=== PATIENT | male | born 1975 | race Caucasian/White ===

== ENCOUNTER 2023-11-10 01:09 | Observation (INO) ==
[2023-11-10] MEDS: Lidocaine/Epineph/Tetraca GEL 3 ML GEL IN SYR TOPICAL ONE (03:09)
[2023-11-10 03:40] LABS: Urine Appearance Cloudy; Urine Bilirubin Negative (Negative); Urine Blood Negative (Negative); Urine Color Yellow; Urine Glucose Negative (Negative); Urine Ketones Negative (Negative); Urine Nitrite Negative (Negative); Urine Protein Negative (Negative); Urine Specific Gravity 1.024 (1.002-1.030); Urine Urobilinogen Negative (Negative)
[2023-11-10 03:40] LABS: Hematocrit 42.6 % (38-53); Hemoglobin 12.8 g/dL (13.2-16.3); Mean Corpuscular Hemoglobin 22.1 pg (27-33); Mean Corpuscular Volume 73.6 fL (80-97); Mean Platelet Volume 6.8 fL (7.5-11.2); Platelet Count 233 10^3/uL (150-450); Red Blood Count 5.79 10^6/uL (4.06-5.63); Red Cell Distribution Width 17.6 % (12-17); White Blood Count 14.3 10^3/uL (3.6-10.2)
[2023-11-10] MEDS: Lidocaine PATCH 5% PATCH TRANSDERM ONE (03:41)
[2023-11-10 03:53] LABS: ALT 101 U/L (7-52); AST 48 U/L (13-39); Albumin/Globulin Ratio 1.3 (1-3); Alkaline Phosphatase 108 U/L (35-149); Anion Gap 10 mmol/L (2-16); Blood Urea Nitrogen 38 mg/dL (6-24); CO2 Carbon Dioxide 23 mmol/L (22-32); Calcium 9.6 mg/dL (8.6-10.3); Chloride 104 mmol/L (101-111); Creatinine, Serum 0.84 mg/dL (0.67-1.17); Globulin 3.1 g/dL (2-4); Glucose 138 mg/dL (70-100); Potassium 3.8 mmol/L (3.5-5.0); Sodium 137 mmol/L (135-145); Total Bilirubin 0.8 mg/dL (0.2-1.0); Total Protein 7.1 g/dL (6.4-8.9); eGFR CKD-EPI 106.9 (>60)
[2023-11-10 04:01] LABS: Urine Benzodiazepine Screen Presumptive Positive (None Detect); Urine Cannabinoids Screen None Detected (None Detect); Urine Opiates Screen None Detected (None Detect)
[2023-11-10 04:14] LABS: Acetaminophen < 15 mcg/mL; Alcohol, S < 13 mg/dL (<13); Salicylate < 2.50 mg/dL (<30)
[2023-11-10 04:27] LABS: ABS Lymphocytes 0.5 10^3/uL (1.0-4.8); ABS Monocytes 0.4 10^3/uL (0.0-1.1); ABS Neutrophils 13.4 10^3/uL (1.5-7.6); ABS Nucleated RBC 0.02 10^3/ul; Anisocytosis 1+; Lymphocyte % 3.5 %; Microcytosis 2+; Nucleated Red Blood Cells % 0.1 %/100WBC (0.0-0.8); Polychromasia 1+
[2023-11-10 04:30] LABS: TSH Ultra Thyroid Stim Horm 0.48 mcIU/mL (0.34-5.60)
[2023-11-10] MEDS: Albuterol/Ipratropium NEB.SOL (2.5/0.5 MG) 3 ML NEB.SOLN INH SCH ×2 (05:20→05:59)
[2023-11-10] MEDS: Morphine ER 15 mg TAB ** extended release PO PRN (05:26)
[2023-11-10] MEDS: Enoxaparin 40 MG/0.4 ML SYR SUBCUT SCH (05:26)
[2023-11-10] MEDS: cefTRIAXone 1 gm/50 mL D5W 1 GM/50 ML BAG IV SCH (05:27)
[2023-11-10 06:16] LABS: Hematocrit 37.8 % (38-53); Hemoglobin 12.1 g/dL (13.2-16.3); Mean Corpuscular Hemoglobin 22.3 pg (27-33); Mean Corpuscular Hgb Conc 32.1 g/dL (31-36); Mean Corpuscular Volume 69.5 fL (80-97); Mean Platelet Volume 7.3 fL (7.5-11.2); Platelet Count 267 10^3/uL (150-450); Red Blood Count 5.44 10^6/uL (4.06-5.63); White Blood Count 14.8 10^3/uL (3.6-10.2)
[2023-11-10 07:29] LABS: ABS Lymphocytes 0.5 10^3/uL (1.0-4.8); ABS Monocytes 0.4 10^3/uL (0.0-1.1); ABS Neutrophils 13.8 10^3/uL (1.5-7.6); ABS Nucleated RBC 0.01 10^3/ul; Lymphocyte % 3.6 %; Nucleated Red Blood Cells % 0.1 %/100WBC (0.0-0.8)
[2023-11-10 11:49] LABS: Albumin 4.3 g/dL (3.2-5.2); Albumin/Globulin Ratio 1.3 (1-3); Calcium 9.6 mg/dL (8.6-10.3); Creatinine, Serum 0.89 mg/dL (0.67-1.17); Globulin 3.2 g/dL (2-4); Potassium 4.1 mmol/L (3.5-5.0); Total Bilirubin 0.7 mg/dL (0.2-1.0); Total Protein 7.5 g/dL (6.4-8.9); eGFR CKD-EPI 105.1 (>60)
[2023-11-10] MEDS: Nicotine GUM 4MG FRUIT FLAVOR PO PRN (12:55)
[2023-11-10 15:40] VITALS: BP 143/112
[2023-11-10] MEDS: Phenylephrine 1% NASAL 15 ML BOT BOTH NARES PRN (15:55)
[2023-11-10] MEDS ORDERED: Albuterol/Ipratropium NEB.SOL (2.5/0.5 MG) 3 ML NEB.SOLN INH PRN (18:42)
[2023-11-11] MEDS ORDERED: ceFAZolin 1 GM ADVAN 1 GM in NS 0.9% 50 ML 50 ML IVPB SCH (14:00)
== END 2023-11-10 17:00 | disposition left against medical advice (07) ==
LOC: ED 01:09 → EDHOLD 01:09 → SSU 07:26
PROVIDERS: ADMIT Internal Medicine; ATTEND Internal Medicine

== ENCOUNTER 2024-01-02 14:40 | Inpatient (IN) ==
[2024-01-02 15:56] LABS: ABS Basophils 0.1 10^3/uL (0.0-0.1); ABS Eosinophils 0.3 10^3/uL (0.0-0.5); ABS Lymphocytes 2.8 10^3/uL (1.0-4.8); ABS Monocytes 1.6 10^3/uL (0.0-1.1); ABS Neutrophils 8.6 10^3/uL (1.5-7.6); ABS Nucleated RBC 0.01 10^3/ul; Eosinophil % 2.1 %; Hematocrit 42.4 % (38-53); Hemoglobin 13.8 g/dL (13.2-16.3); Lymphocyte % 20.8 %; Mean Corpuscular Hemoglobin 21.4 pg (27-33); Mean Corpuscular Hgb Conc 32.5 g/dL (31-36); Mean Corpuscular Volume 65.8 fL (80-97); Mean Platelet Volume 7.5 fL (7.5-11.2); Nucleated Red Blood Cells % 0.1 %/100WBC (0.0-0.8); Platelet Count 440 10^3/uL (150-450); Red Blood Count 6.43 10^6/uL (4.06-5.63); Red Cell Distribution Width 14.9 % (12-17); White Blood Count 13.4 10^3/uL (3.6-10.2)
[2024-01-02] MEDS: oxyCODONE/Acetamin 5/325 mg TAB PO ONE (16:33)
[2024-01-02] MEDS: Ondansetron 4 mg VIAL 2 MG/ML 2 ml VIAL IV ONE (16:38)
[2024-01-02] MEDS: NS 0.9% 500 ml BAG 500 ML IV ONE (16:38)
[2024-01-02 16:46] LABS: Albumin 3.9 g/dL (3.2-5.2); Albumin/Globulin Ratio 1.1 (1-3); Calcium 9.7 mg/dL (8.6-10.3); Creatinine, Serum 1.66 mg/dL (0.67-1.17); Globulin 3.5 g/dL (2-4); Potassium 2.7 mmol/L (3.5-5.0); Total Protein 7.4 g/dL (6.4-8.9); eGFR CKD-EPI 50.2 (>60)
[2024-01-02 17:05] LABS: High Sensitivity Troponin 1 Hr 14 pg/mL (<20)
[2024-01-02] MEDS: Lactated Ringers 1000 ml BAG 1,000 ML IV ONE (18:14)
[2024-01-02] MEDS: KCL 20 MEQ/100 ML IVPREMIX 20 MEQ/100 ML BAG IV ONE (18:14)
[2024-01-02] MEDS: Potassium EFFERVES 25 meq TAB PO ONE (18:17)
[2024-01-02] MEDS: Bacitracin OINTMENT TUBE TOPICAL ONE (18:23)
[2024-01-02] MEDS: Iodixanol (CONTRAST) 320 MG/ML 100 ML SDV IV ONE (18:30)
[2024-01-02 18:44] LABS: C Reactive Protein 16.08 mg/L (<8.01)
[2024-01-02] MEDS: Heparin 5000 UNITS/ML 1 mL VIAL IV SCH (20:50)
[2024-01-02] MEDS: Heparin DRIP 25,000 UNITS BAG 25,000 UNITS/250 ML BAG IV SCH (20:51)
[2024-01-02] MEDS ORDERED: Nicotine GUM 2MG FRUIT FLAVOR PO PRN (22:08)
[2024-01-02 22:35] LABS: Magnesium 1.9 mg/dL (1.9-2.7)
[2024-01-02] MEDS: Calamine LOTION BTL TOPICAL PRN (23:00)
[2024-01-03] MEDS: Lidocaine PATCH 4% TOPICAL SCH (00:05)
[2024-01-03 06:25] LABS: ABS Basophils 0.1 10^3/uL (0.0-0.1); ABS Eosinophils 0.4 10^3/uL (0.0-0.5); ABS Lymphocytes 2.5 10^3/uL (1.0-4.8); ABS Monocytes 1.2 10^3/uL (0.0-1.1); ABS Neutrophils 8.1 10^3/uL (1.5-7.6); ABS Nucleated RBC 0.01 10^3/ul; Eosinophil % 3.1 %; Hematocrit 39.1 % (38-53); Hemoglobin 12.6 g/dL (13.2-16.3); Lymphocyte % 20.4 %; Mean Corpuscular Hemoglobin 21.4 pg (27-33); Mean Corpuscular Hgb Conc 32.4 g/dL (31-36); Mean Corpuscular Volume 66.2 fL (80-97); Mean Platelet Volume 7.9 fL (7.5-11.2); Platelet Count 411 10^3/uL (150-450); Potassium 2.5 mmol/L (3.5-5.0); Red Cell Distribution Width 15.1 % (12-17); White Blood Count 12.4 10^3/uL (3.6-10.2)
[2024-01-03 06:26] LABS: Calcium 9.2 mg/dL (8.6-10.3); Creatinine, Serum 1.62 mg/dL (0.67-1.17); Magnesium 1.8 mg/dL (1.9-2.7); eGFR CKD-EPI 51.7 (>60)
[2024-01-03] MEDS: Mometasone/Formoter 100/5 MDI INH SCH (08:04)
[2024-01-03] MEDS: Magnesium Sulfate 2 gm BAG 2 GM/50 ML BAG IVPB ONE (08:46)
[2024-01-03] MEDS: Potassium Chlor 20 meq TAB.ER PO ONE (08:51)
[2024-01-03] MEDS: KCL 10 MEQ/50 ML IVPREMIX 10 MEQ/50 ML BAG IV SCH (10:25)
[2024-01-03] MEDS: Potassium EFFERVES 25 meq TAB PO ONE (12:56)
[2024-01-03] MEDS: HYDROmorphone 0.5 MG/0.5 ML SYRINGE IV SLOW PU ONE (13:52)
[2024-01-03] MEDS: Scopolamine 1 mg/72hr PATCH TRANSDERM SCH (13:53)
[2024-01-03] MEDS: SPIRIVA Respimat (tiotropium) 2.5 mcg/inh Inhaler INH PRN (18:07)
[2024-01-04] MEDS: Calcium Carb (TUMS) 500 mg CHEW TAB PO ONE (02:44)
[2024-01-04] MEDS: Benzocaine/Menthol LOZ PO PRN (02:45)
[2024-01-04] MEDS: Albuterol HFA INHALER 8 gm MDI INH PRN (02:45)
[2024-01-04 06:04] LABS: ABS Basophils 0.1 10^3/uL (0.0-0.1); ABS Eosinophils 0.1 10^3/uL (0.0-0.5); ABS Lymphocytes 1.5 10^3/uL (1.0-4.8); ABS Monocytes 1.1 10^3/uL (0.0-1.1); ABS Neutrophils 10.5 10^3/uL (1.5-7.6); ABS Nucleated RBC 0.01 10^3/ul; Eosinophil % 1.1 %; Hematocrit 37.6 % (38-53); Hemoglobin 12.2 g/dL (13.2-16.3); Lymphocyte % 11.2 %; Mean Corpuscular Hemoglobin 21.3 pg (27-33); Mean Corpuscular Hgb Conc 32.4 g/dL (31-36); Mean Corpuscular Volume 65.7 fL (80-97); Mean Platelet Volume 7.9 fL (7.5-11.2); Nucleated Red Blood Cells % 0.1 %/100WBC (0.0-0.8); Platelet Count 366 10^3/uL (150-450); Red Blood Count 5.72 10^6/uL (4.06-5.63); Red Cell Distribution Width 14.8 % (12-17); White Blood Count 13.3 10^3/uL (3.6-10.2)
[2024-01-04 06:26] LABS: Calcium 8.9 mg/dL (8.6-10.3); Creatinine, Serum 1.11 mg/dL (0.67-1.17); Potassium 2.7 mmol/L (3.5-5.0); eGFR CKD-EPI 81.4 (>60)
[2024-01-04] MEDS ORDERED: KCL 20 MEQ/100 ML IVPREMIX 20 MEQ/100 ML BAG IV SCH (08:00)
[2024-01-04 08:04] LABS: Magnesium 2.3 mg/dL (1.9-2.7)
[2024-01-04] MEDS ORDERED: Potassium Chlor 20 meq TAB.ER PO SCH (09:00)
[2024-01-04] MEDS: KCL premix 10 MEQ/50 ML x 4 RUNS IV SCH (09:25)
[2024-01-04] MEDS: Potassium EFFERVES 25 meq TAB PO ONE (11:09)
[2024-01-04] MEDS: Potassium Chloride LIQUID 20 MEQ/15 ML LIQUID PO ONE ×2 (12:24→13:27)
[2024-01-04 13:20] VITALS: BP 111/64
== END 2024-01-04 15:00 | disposition home or self-care (01) | DRG 134 ==
LOC: ED 14:40 → EDHOLD 19:10 → SUATTDRO 19:10 → MED 22:54
PROVIDERS: ADMIT Internal Medicine; ATTEND Student in an Organized Health Care Education/Training Program